=== PATIENT | female | born 1995 | race Caucasian/White ===

== ENCOUNTER 2023-01-04 10:13 | Emergency (ER) | payer OTHER ==
[~2023-01-04] VITALS: Ht 165.1 cm; Wt 85.0 kg
[2023-01-04 10:23] VITALS: BP 107/78; PULSE 82; RESP 18; TEMP 97.8; O2SAT 100
[2023-01-04] MEDS ORDERED: AMOX-117 PO (12:49)
== END 2023-01-04 13:08 | disposition home or self-care (01) ==
LOC: ER 10:13
DX: M79.601 Pain in right arm (principal); W55.01XA Bitten by cat, initial encounter; Y93.89 Activity, other specified; Y92.89 Other specified places as the place of occurrence of the external cause; Y99.8 Other external cause status
CPT/HCPCS: 99283